=== PATIENT | male | born 1990 | race Caucasian/White ===

== ENCOUNTER 2017-10-11 02:10 | Emergency (ER) | payer OTHER ==
--- NOTE | 2017-10-11 03:31 | ED Physician Documentation ---
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 Patient states that he was working tonight and the pressure reading in the unit he was working him read above the limit. Patient complained of a rash that has dissipated and same pain in his knees and elbows. patient denies any chest pain or shortness of breath or any neurological symptoms including headaches. Review of Systems Constitutional: reports: Myalgias Eyes: denies: Decreased vision Ears: denies: Loss of hearing, Ear pain, Drainage/discharge, Tinnitus/ringing Nose: denies: Epistaxis Throat: reports: Reviewed and negative Cardiac: denies: Chest pain / pressure, Palpitations Respiratory: denies: Dyspnea, Cough, Wheezing GI: denies: Abdominal Pain, Nausea, Vomiting : reports: Reviewed and negative Skin: reports: Rash Musculoskeletal: reports: Joint pain. denies: Joint swelling Neurologic: denies: Generalized weakness, Focal weakness, Numbness Immunocompromised: denies: Immunocompromised PD PAST MEDICAL HISTORY - Past Medical History Past Medical History: No - Past Surgical History Past Surgical History: No - Present Medications Home Medications: Ambulatory Orders Medication Instructions Recorded Confirmed No Known Home Medications [No 10/11/17 10/11/17 Known Home Medications] - Allergies Allergies/Adverse Reactions: Allergies Allergy/AdvReac Type Severity Reaction Status Date / Time No Known Drug Allergies Allergy Verified 10/11/17 02:28 - Social History Does the pt smoke?: No Smoking Status: Never smoker Does the pt drink ETOH?: No Does the pt have substance abuse?: No - Immunizations Immunizations are current?: Yes - POLST Patient has POLST: No PD ED PE NORMAL - Vitals Vital signs reviewed: Yes - General General: Alert and oriented X 3, No acute distress, Well developed/nourished - HEENT HEENT: Atraumatic, PERRL, Ears normal, Moist mucous membranes - Neck Neck: Supple, no meningeal sign - Cardiac Cardiac: RRR - Respiratory Respiratory: No respiratory distress, Clear bilaterally - Abdomen Abdomen: Soft, Non tender, Non distended - Derm Derm: Normal color, No rash - Extremities Extremities: No deformity, No edema - Neuro Neuro: Alert and oriented X 3, psychology lecturer 2-12 intact, No motor deficit, No sensory deficit, Normal speech Eye Opening: Spontaneous Motor: Obeys Commands Verbal: Oriented GCS Score: 15 - Psych Psych: Normal mood Results - Vitals Vitals: Vital Signs - 24 hr 10/11/17 10/11/17 02:15 03:08 Temperature 37.1 C Heart Rate 75 64 Respiratory 17 16 Rate Blood Pressure 174/93 H 169/91 H O2 Saturation 100 100 Oxygen O2 Source Nasal cannula Oxygen Flow Rate 2 PD MEDICAL DECISION MAKING - ED course Complexity details: reviewed old records, reviewed results, re-evaluated patient , considered differential, d/w patient ED course: Patient was seen and examined at bedside. patient was well appearing and had no evidence of cardiac or pulmonary compromise. Patient was treated with supplemental oxygen. All of the patient's symptoms resolved. While serious compression sickness was considered there were symptoms of significant damage. Patient required no further work up at this time and was stable for discharge with outpatient follow up. Departure - Departure Disposition: 01 Home, Self Care Clinical Impression: Decompression sickness Condition: Good Instructions: Oxygen Use Safety Follow-Up: primary,care provider [Other] Comments: Your symptoms today are likely secondary to the elevated pressures. the pain in your joints may be worse tomorrow. You should return to the emergency department for any chest pain, shortness of breath or neurological symptoms. Forms: Activity restrictions
[2017-10-11 03:47] VITALS: BP 180/82
== END 2017-10-11 03:37 | disposition home or self-care (01) ==
LOC: ED 02:10
DX: T70.3XXA Caisson disease [decompression sickness], initial encounter (principal); X58.XXXA Exposure to other specified factors, initial encounter
CPT/HCPCS: 99283

== ENCOUNTER 2019-03-21 14:53 | Emergency (ER) | payer OTHER ==
--- NOTE | 2019-03-21 15:22 | ED Physician Documentation ---
History of Present Illness - Stated complaint Stated Complaint: DIZZY/V/MALE - Chief complaint Chief Complaint: Abd Pain - History obtained from History obtained from: Patient - History of Present Illness Timing: Prior to arrival - Additonal information Additional information: Patient is a previously healthy 29-year-old male presenting with less than 1 day of nausea without vomiting, lower back pain, dysuria without hematuria, lightheadedness, chills, which he describes as "like a Nicky Angelo song".Patient denies stool changes except for mild constipation. Patient denies history of UTI or pyelonephritis, but does report episode of chlamydia that was treated several years ago. Patient denies any concerns for STDs at this time and denies other testicular, penile, or groin issues. No other improving or worsening factors noted. Review of Systems Constitutional: reports: Chills. denies: Fever GI: reports: Nausea, Constipation. denies: Abdominal Pain, Vomiting : reports: Dysuria Musculoskeletal: reports: Back pain PD PAST MEDICAL HISTORY - Past Medical History Past Medical History: No - Past Surgical History Past Surgical History: No - Present Medications Home Medications: Ambulatory Orders Medication Instructions Recorded Confirmed Ciprofloxacin HCl [Cipro] 500 mg PO BID #14 tablet 03/21/19 - Allergies Allergies/Adverse Reactions: Allergies Allergy/AdvReac Type Severity Reaction Status Date / Time No Known Drug Allergies Allergy Verified 10/11/17 02:28 - Social History Does the pt smoke?: No Smoking Status: Never smoker Does the pt drink ETOH?: No Does the pt have substance abuse?: No - Immunizations Immunizations are current?: Yes - POLST Patient has POLST: No PD ED PE NORMAL - Vitals Vital signs reviewed: Yes - General General: Alert and oriented X 3, No acute distress, Well developed/nourished - HEENT HEENT: Atraumatic. No: Moist mucous membranes (Dry) - Neck Neck: Supple, no meningeal sign - Cardiac Cardiac: RRR, No murmur - Respiratory Respiratory: No respiratory distress, Clear bilaterally - Abdomen Abdomen: Soft, Non tender, Non distended - Back Back: No CVA TTP - Derm Derm: Normal color, Warm and dry, No rash - Extremities Extremities: No deformity, No tenderness to palpate - Neuro Neuro: Alert and oriented X 3, No motor deficit, No sensory deficit - Psych Psych: Normal mood, Normal affect Results - Vitals Vitals: Vital Signs - 24 hr 03/21/19 14:55 Temperature 37.4 C Heart Rate 103 H Respiratory 18 Rate Blood Pressure 133/68 H O2 Saturation 98 Oxygen O2 Source Room air - Labs Labs: Laboratory Tests 03/21/19 03/21/19 03/21/19 15:34 15:34 16:35 WBC 14.4 H RBC 4.27 L Hgb 13.5 L Hct 39.8 L MCV 93.2 MCH 31.6 H MCHC 33.9 RDW 11.9 L Plt Count 187 MPV 11.1 Neut # (Auto) 12.7 H Lymph # (Auto) 0.7 L [place] # (Auto) 0.8 Eos # (Auto) 0.0 Baso # (Auto) 0.0 Absolute Nucleated RBC 0.00 Nucleated RBC % 0.0 Sodium 140 Potassium 4.0 Chloride 102 Carbon Dioxide 25 Anion Gap 13.0 BUN 13 Creatinine 1.0 Estimated GFR (MDRD) 88 L Glucose 121 H Calcium 9.9 Total Bilirubin 1.2 H AST 20 ALT 28 Alkaline Phosphatase 47 Total Protein 8.0 Albumin 4.7 Globulin 3.3 Albumin/Globulin Ratio 1.4 Lipase 19 L Urine Color YELLOW Urine Clarity HAZY Urine pH 6.0 Ur Specific [place] 1.015 Urine Protein TRACE Urine Glucose (UA) NEGATIVE Urine Ketones TRACE Urine Occult Blood TRACE-INTA Urine Nitrite NEGATIVE Urine Bilirubin NEGATIVE Urine Urobilinogen 1 (NORMAL) Ur Leukocyte Esterase LARGE H Urine RBC 0-5 Urine WBC >25 H Urine WBC Clumps PRESENT Ur Squamous Epith Cells NONE SEEN Urine Bacteria None Seen Ur Microscopic Review INDICATED Urine Culture Comments INDICATED PD MEDICAL DECISION MAKING - ED course Complexity details: reviewed results, re-evaluated patient, considered differential, d/w patient, d/w family ED course: Based on patient's symptoms and clinical exam findings, have highest suspicion for UTI and pyelonephritis. Have lower suspicion for nephrolithiasis and other intra-abdominal or pelvic etiologies including appendicitis, gallbladder disease, pancreatitis, diverticulitis, bowel obstruction, AAA, testicular issues, STDs, but considered. Patient received IV fluids, but did not require medications while in the ED. Screening lab work found evidence of leukocytosis, but no acute kidney injury. Urinalysis concerning for infection. At this time, do not feel patient is exhibiting symptoms of sepsis or other complicating factor that would require IV antibiotics or hospitalization. Also do not feel patient requires imaging. Discussed results recommendations including oral anti biotics for home, strict return precautions, diet and hydration recommendations, and follow-up. Patient voiced understanding and is comfortable with discharge plan. Departure - Departure Disposition: 01 Home, Self Care Clinical Impression: Pyelonephritis Condition: Good Instructions: ED UTI Pyelonephritis Male Follow-Up: your,doctor [Other] - Within 3 Days Prescriptions: Ciprofloxacin HCl [Cipro] 500 mg PO BID #14 tablet Comments: Please take antibiotics as prescribed to treat bladder and kidney infection. Recommend taking antibiotics with a small amount of food to avoid upset stomach. Please limit strenuous exercise while taking these antibiotics as they can cause problems with tendons and ligaments. Recommend hydration, healthy diet, rest, and follow-up with primary care physician in next 2 to 3 days. Return to ED sooner if experience worsening symptoms or have other concerns.
[2019-03-21] MEDS ORDERED: SODIUM CHLORIDE 0.9% 1,000 ML IV ONE (15:28)
[2019-03-21 15:40] LABS: BASOPHILS % (AUTO) 0.3 %; EOSINOPHILS % (AUTO) 0.1 %; HGB - HEMOGLOBIN 13.5 g/dL (14.0-18.0); LYMPHOCYTES # (AUTO) 0.7 10^3/uL (1.5-3.5); LYMPHOCYTES % (AUTO) 5.1 %; MEAN CORPUSCULAR HEMOGLOBIN 31.6 pg (27.0-31.0); MEAN CORPUSCULAR HGB CONC 33.9 g/dL (32.0-36.0); MEAN CORPUSCULAR VOLUME 93.2 fL (80.0-94.0); MEAN PLATELET VOLUME 11.1 fL (7.4-11.4); MONOCYTES # (AUTO) 0.8 10^3/uL (0.0-1.0); MONOCYTES % (AUTO) 5.8 %; NEUTROPHILS # (AUTO) 12.7 10^3/uL (1.5-6.6); NEUTROPHILS % (AUTO) 87.7 %; PLT - PLATELET COUNT 187 10^3/uL (130-450); RED BLOOD COUNT 4.27 10^6/uL (4.70-6.10); RED CELL DISTRIBUTION WIDTH 11.9 % (12.0-15.0); WHITE BLOOD COUNT 14.4 x10^3/uL (4.8-10.8)
[2019-03-21 15:53] LABS: ALBUMIN 4.7 g/dL (3.2-5.5); BILIRUBIN,TOTAL 1.2 mg/dL (0.2-1.0); CALCIUM 9.9 mg/dL (8.5-10.3)
[2019-03-21 15:54] LABS: ALBUMIN/GLOBULIN RATIO 1.4 (1.0-2.2)
[2019-03-21 16:45] LABS: GLUCOSE, URINE (UA) NEGATIVE (NEGATIVE); KETONES,URINE (UA) TRACE mg/dL (NEGATIVE); LEUKOCYTE ESTERASE, URINE LARGE (NEGATIVE); NITRITE,URINE NEGATIVE (NEGATIVE); OCCULT BLOOD,URINE TRACE-INTA (NEGATIVE); PROTEIN,URINE TRACE mg/dL (NEGATIVE); UROBILINOGEN,URINE 1 (NORMAL) E.U./dL (NORMAL)
[2019-03-21 16:47] LABS: CLARITY,URINE HAZY (CLEAR)
[2019-03-21 16:48] LABS: BILIRUBIN,URINE NEGATIVE (NEGATIVE); ICTOTEST,URINE NEGATIVE
[2019-03-21 16:55] LABS: WBC CLUMPS,URINE PRESENT
[2019-03-21 16:56] LABS: BACTERIA,URINE None Seen /HPF (None Seen); RBC,URINE 0-5 /HPF (0-5); SQUAMOUS EPITHELIAL CELL,UR NONE SEEN (<= Few)
[2019-03-21 17:26] VITALS: BP 130/84
== END 2019-03-21 17:27 | disposition home or self-care (01) ==
LOC: ED 14:53
DX: N12 Tubulo-interstitial nephritis, not specified as acute or chronic (principal)
CPT/HCPCS: 36415; 80053; 81001; 81003; 83690; 85025; 87086; 87181; 96360; 99284

== ENCOUNTER 2019-04-10 14:49 | Emergency (ER) | payer OTHER ==
[2019-04-10 14:54] VITALS: BP 142/91
--- NOTE | 2019-04-10 14:57 | ED Physician Documentation ---
PD HPI MALE - Stated complaint Stated Complaint: MALE - Chief complaint Chief Complaint: UTI - History obtained from History obtained from: Patient - History of Present Illness Timing - onset: How many weeks ago (3) Timing - duration: Weeks (3) Timing - details: Gradual onset, Still present (He improved in the last 10 days on the second antibiotic. However he states it never completely went away and is now having slightly increasing symptoms again having finished antibiotic 2 days ago.) Associated symptoms: Dysuria, Urinary frequency. No: Discharge, Genital sore / lesion Recently seen: Emergency Dept (He was seen on the for urinary symptoms and had a urinalysis showing likely infection. He was prescribed Cipro which he says did not help with the symptoms. The culture showed a resistant to that. He was given a prescription for Augmentin and on the as apparently has cont act information was hard and they had to send a letter I think. He states his symptoms decreased on the Augmentin but not completely resolved. The initial culture did show sensitivity to Augmentin but resistance to ampicillin.) Review of Systems Constitutional: denies: Fever, Chills : reports: Dysuria, Frequency. denies: Discharge Skin: denies: Rash, Lesions PD PAST MEDICAL HISTORY - Past Medical History Cardiovascular: None Respiratory: None : None - Past Surgical History Past Surgical History: No - Present Medications Home Medications: Ambulatory Orders Medication Instructions Recorded Confirmed Ciprofloxacin HCl [Cipro] 500 mg PO BID #14 tablet 03/21/19 Phenazopyridine HCl [Pyridium] 100 mg PO TID PRN #15 tablet 04/10/19 RX: Doxycycline Hyclate 100 mg PO BID #14 capsule 04/10/19 RX: Naproxen 500 mg PO BID #14 tablet 04/10/19 - Allergies Allergies/Adverse Reactions: Allergies Allergy/AdvReac Type Severity Reaction Status Date / Time No Known Drug Allergies Allergy Verified 04/10/19 14:54 - Social History Does the pt smoke?: No Smoking Status: Never smoker Does the pt drink ETOH?: No Does the pt have substance abuse?: No - Immunizations Immunizations are current?: Yes - POLST Patient has POLST: No PD ED PE NORMAL - Vitals Vital signs reviewed: Yes - General General: Alert and oriented X 3, No acute distress, Well developed/nourished - Abdomen Abdomen: Soft, Non tender - Male Male : Deferred - Rectal Rectal: Deferred - Back Back: No CVA TTP Results - Vitals Vitals: Vital Signs - 24 hr 04/10/19 04/10/19 14:52 15:29 Temperature 36.6 C 36.6 C Heart Rate 68 68 Respiratory 16 16 Rate Blood Pressure 142/91 H 142/91 H O2 Saturation 99 99 Oxygen O2 Source Room air - Labs Labs: Laboratory Tests 04/10/19 14:55 Urine Color YELLOW Urine Clarity CLEAR Urine pH 6.0 Ur Specific [place] <=1.005 Urine Protein NEGATIVE Urine Glucose (UA) NEGATIVE Urine Ketones NEGATIVE Urine Occult Blood NEGATIVE Urine Nitrite NEGATIVE Urine Bilirubin NEGATIVE Urine Urobilinogen 0.2 (NORMAL) Ur Leukocyte Esterase TRACE H Urine RBC None Seen Urine WBC 6-10 H Ur Squamous Epith Cells NONE SEEN Urine Bacteria None Seen Ur Microscopic Review INDICATED Urine Culture Comments INDICATED PD MEDICAL DECISION MAKING - ED course Complexity details: reviewed old records, reviewed results, considered differential (There may be still some persistent infection. Will change antibiotics based off of the initial culture from the eighth. I will change him to doxycycline and also add an naproxen anti-inflammatory and Pyridium for symptoms. It may be just residual inflammation as well we will treat for that 2.), d/w patient Departure - Departure Disposition: Home, Self Care Clinical Impression: UTI (urinary tract infection) Qualifiers: Urinary tract infection type: acute cystitis Hematuria presence: without hematuria Qualified Code(s): N30.00 - Acute cystitis without hematuria Condition: Stable Record reviewed to determine appropriate education?: Yes Instructions: ED UTI Cystitis Male Follow-Up: ARASH Strange [Provider Group] Prescriptions: RX: Doxycycline Hyclate 100 mg PO BID #14 capsule RX: Naproxen 500 mg PO BID #14 tablet Phenazopyridine HCl [Pyridium] 100 mg PO TID PRN #15 tablet PRN Reason: Abdominal Pain Comments: Stay well-hydrated. Doxycycline antibiotic twice daily for a week. Also add naproxen anti-inflammatory twice daily for a week with food. This is to help with the inflammation as well as treating the infection. Phenazopyridine as needed for urinary discomfort. This will turn your urine will orange-colored so not to worry. Recheck if still not improving well over the next 1-2 days and completely resolved over a few days. Discharge Date/Time: 04/10/19 15:29
[2019-04-10 15:05] LABS: BILIRUBIN,URINE NEGATIVE (NEGATIVE); CLARITY,URINE CLEAR (CLEAR); GLUCOSE, URINE (UA) NEGATIVE (NEGATIVE); KETONES,URINE (UA) NEGATIVE (NEGATIVE); LEUKOCYTE ESTERASE, URINE TRACE (NEGATIVE); NITRITE,URINE NEGATIVE (NEGATIVE); OCCULT BLOOD,URINE NEGATIVE (NEGATIVE); PROTEIN,URINE NEGATIVE (NEGATIVE); UROBILINOGEN,URINE 0.2 (NORMAL) E.U./dL (NORMAL)
[2019-04-10] MEDS ORDERED: DOXYCYCLINE 100 MG TABLET PO STA (15:10)
[2019-04-10] MEDS ORDERED: NAPROXEN 250 MG TABLET PO STA (15:10)
[2019-04-10] MEDS ORDERED: PHENAZOPYRIDINE 100 MG TABLET PO STA (15:10)
[2019-04-10 15:20] LABS: BACTERIA,URINE None Seen /HPF (None Seen); RBC,URINE None Seen /HPF (0-5); SQUAMOUS EPITHELIAL CELL,UR NONE SEEN (<= Few)
== END 2019-04-10 15:29 | disposition home or self-care (01) ==
LOC: ED 14:49
DX: N30.00 Acute cystitis without hematuria (principal)
CPT/HCPCS: 81001; 87086; 99283; 99284; A9270; 81003